=== PATIENT | male | born 1990 | race Caucasian/White ===

== ENCOUNTER 2018-02-28 14:49 | Inpatient (IN) | payer OTHER ==
--- NOTE | 2018-02-28 15:14 | EDPHY ---
H & P Time Seen by Provider: 02/28/18 14:57 HPI/ROS: HPI Suicidal thoughts. 27-year-old male on a M1 hold. Brought into the emergency department by police. This patient reports that he was diagnosed with likely bipolar syndrome and anxiety last week by his psychiatrist. He reports that he was having impulsive thoughts to day. He reports also that he has been having marital problems. He was talking to his about acting out on these impulsive thoughts which included suicide and slitting his wrists. His called police and he was brought to the emergency department for evaluation. Currently he has no complaints. He does admit to feeling suicidal but does not feel suicidal at this time. He takes gabapentin currently for anxiety. His psychiatrist is through the [facility]. ROS: Constitutional: No fever, no chills. No weakness. Eyes: No discharge. No changes in vision. ENT: No sore throat. No nasal congestion or rhinorrhea. Respiratory: No cough. No shortness of breath. Cardiac: No chest pain, no palpitations. Gastrointestinal: No abdominal pain, no vomiting, no diarrhea. Genitourinary: No hematuria. No dysuria or increased frequency with urination. Musculoskeletal: No back pain. No neck pain. No myalgias or arthralgias. Skin: No rashes. Neurological: No headache. No focal weakness or altered sensation. Past medical history: As above. 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 He is . No children. He smokes marijuana occasionally. No IV drugs or street drugs. No alcohol. Physical Exam: General Appearance: Alert, no distress. This patient is responding to questions appropriately and in full sentences. This patient appears well- hydrated and well-nourished. Eyes: Pupils equal and round no pallor or injection. No lid edema, erythema or injection. Respiratory: There are no retractions, lungs are clear to auscultation with good air movement bilaterally. Cardiovascular: Regular rate and rhythm. No murmur. Gastrointestinal: Abdomen is soft and nontender, no masses, bowel sounds normal. No focal tenderness at McBurney's point. No Montesinos sign. Neurological: Motor sensory function is grossly intact. Cranial nerves are normal. Gait is normal. Skin: Warm and dry, no rashes. Musculoskeletal: Neck is supple and nontender. Extremities are symmetrical. All joints range without pain or impingement. Psychiatric: No agitation. No depression. Database: EKG: Imaging: Procedures: Emergency department course: Triage vital signs reviewed. At 3:15 p.m., the patient is awake, alert and oriented. I do not suspect any intoxication. He he is medically clear for psychiatric evaluation. Blood work and urine tox pending. Behavioral Health notified. 5:30 p.m., the patient has been seen and evaluated by [facility]. They will admit him to [address] [place] [address] under the care of Dr. Hummel. I have filled out the appropriate transfer paperwork. The patient's remaining emergency department course under my care has been uneventful. The patient was transferred in stable condition to [address] [place] [address]. Differential Diagnosis: The differential diagnosis on this patient includes but is not limited to situational depression, major depression, suicidal ideation. This represents a partial list of diagnoses considered. These considerations are based on history , physical exam, past history, reassessment and diagnostic testing. Constitutional: Initial Vital Signs Temperature (C) 36.7 C 02/28/18 15:46 Heart Rate 85 02/28/18 15:46 Respiratory Rate 18 02/28/18 15:46 Blood Pressure 137/88 H 02/28/18 15:46 O2 Sat (%) 97 02/28/18 15:46 O2 Delivery Mode Room Air Allergies/Adverse Reactions: No Known Allergies Allergy (Unverified 02/28/18 15:45) Home Medications: Medication Instructions Recorded NK [No Known Home Meds] 02/28/18 Medical Decision Making - Data Points Laboratory Results: Laboratory Results 02/28/18 15:40 02/28/18 15:40 02/28/18 02/28/18 02/28/18 15:40 15:40 15:15 WBC 8.22 10^3/uL 10^3/uL (3.80-9.50) RBC 5.33 10^6/uL 10^6/uL (4.40-6.38) Hgb 15.3 g/dL g/dL (13.7-17.5) Hct 44.7 % % (40.0-51.0) MCV 83.9 fL fL (81.5-99.8) MCH 28.7 pg pg (27.9-34.1) MCHC 34.2 g/dL g/dL (32.4-36.7) RDW 12.6 % % (11.5-15.2) Plt Count 299 10^3/uL 10^3/uL (150-400) MPV 9.9 fL fL (8.7-11.7) Neut % (Auto) 56.7 % % (39.3-74.2) Lymph % (Auto) 31.5 % % (15.0-45.0) Traverse % (Auto) 5.7 % % (4.5-13.0) Eos % (Auto) 4.3 % % (0.6-7.6) Baso % (Auto) 0.9 % % (0.3-1.7) Nucleat RBC Rel Count 0.0 % % (0.0-0.2) Absolute Neuts (auto) 4.67 10^3/uL 10^3/uL (1.70-6.50) Absolute Lymphs (auto) 2.59 10^3/uL 10^3/uL (1.00-3.00) Absolute Monos (auto) 0.47 10^3/uL 10^3/uL (0.30-0.80) Absolute Eos (auto) 0.35 10^3/uL 10^3/uL (0.03-0.40) Absolute Basos (auto) 0.07 10^3/uL 10^3/uL (0.02-0.10) Absolute Nucleated RBC 0.00 10^3/uL 10^3/uL (0-0.01) Immature Gran % 0.9 % % (0.0-1.1) Immature Gran # 0.07 10^3/uL 10^3/uL (0.00-0.10) Sodium 141 mEq/L mEq/L (135-145) Potassium 4.2 mEq/L mEq/L (3.3-5.0) Chloride 103 mEq/L mEq/L (97-110) Carbon Dioxide 28 mEq/l mEq/l (22-31) Anion Gap 10 mEq/L mEq/L (6-14) BUN 12 mg/dL mg/dL (7-23) Creatinine 0.7 mg/dL mg/dL (0.7-1.3) Estimated GFR > 60 Glucose 85 mg/dL mg/dL (70-100) Calcium 9.8 mg/dL mg/dL (8.5-10.4) Urine Opiates Screen NEGATIVE (NEGATIVE) Urine Barbiturates NEGATIVE (NEGATIVE) Ur Phencyclidine Scrn NEGATIVE (NEGATIVE) Ur Amphetamine Screen NEGATIVE (NEGATIVE) U Benzodiazepines Scrn NEGATIVE (NEGATIVE) Urine Cocaine Screen NEGATIVE (NEGATIVE) U Marijuana (THC) Screen NEGATIVE (NEGATIVE) Ethyl Alcohol < 10 mg/dL mg/dL (0-10) Departure - Departure Disposition: [facility] IP Clinical Impression: Suicidal ideation Referrals: NONE *PRIMARY CARE P,. [Primary Care Provider] - As per Instructions
[2018-02-28 16:01] LABS: PLATELET COUNT 299 10^3/uL (150-400)
--- NOTE | 2018-02-28 18:28 | ASMTTCLDSP ---
TLC Discharge Disposition Disposition: Answers: Admit Disposition Notes: Notes: In consultation with [facility] ED physician, Luz Maria Davis MD and [facility] on-call psychiatrist, Chester Hummel MD, both concurred that pt appears to meet 27-65 criteria requiring psychiatric hospitalization as the patient appears to be an imminent risk of harm to self due to a mental illness condition. The patient was given the 3N prohibited belongings list while in the ED. Was patient given the Answers: Yes Inpatient Behavioral Health Prohibited Belongings List while in the ED? For inpatient Chester Hummel MD admission, the following psychiatrist agreed to accept patient for admission to Behavioral Health ([facility]): Type of Hold: Answers: M1/72-hour Hold Hold initiated by: Answers: Police Date Signed: 02/28/2018 06:27 PM Electronically Signed By:Nadira Christian
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
[2018-02-28] MEDS ORDERED: MAG HYDROX/AL HYDROX/SIMETH 30 ML UDCUP PO PRN (21:42)
[2018-02-28] MEDS ORDERED: ACETAMINOPHEN 325 MG TAB PO PRN (21:42)
[2018-02-28] MEDS ORDERED: MAGNESIUM HYDROXIDE 30 ML UDCUP PO PRN (21:42)
[2018-02-28] MEDS ORDERED: OLANZapine DISINTEGR 5 MG TAB PO PRN (21:42)
[2018-02-28] MEDS ORDERED: LORazepam 0.5 MG TAB PO PRN (21:42)
[2018-02-28] MEDS ORDERED: NICOTINE POLACRILEX 2 MG GUM B PRN (21:42)
[2018-02-28] MEDS ORDERED: MELATONIN 3 MG TAB PO PRN (21:44)
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
[2018-03-01] MEDS: GABAPENTIN 300 MG CAP PO SCH (08:26)
--- NOTE | 2018-03-01 11:17 | PDMN ---
Medical Necessity Medical [place] [facility] [place] PTSD, Adult, IP Care: 27 yo admit to IP BEH unit to r/o persistent depressive d/o (dysthymia) and OCD, pt with PTSD, on M1, hold risk of harm to self w suicidal ideation.
--- NOTE | 2018-03-01 11:20 | ASMTBHDC ---
Notes Note: Notes: CC was able to confirm all of client's out-patient appts: Follow up with: [facility] [place]: [address] [address] Therapy Appt: March 04 (03/04/18) at 1pm. Next Vault Attendant Appt: ThursdayMarch 08 (03/08/18) at 8:30am with KATHRYN Echols. Next Medication Appt: with Dr. Benton on ThursdayMarch 17 at 1pm Date Signed: 03/01/2018 11:19 AM Electronically Signed By:Edward Springer
--- NOTE | 2018-03-01 13:44 | BCON ---
INTERNAL MEDICINE CONSULTATION DATE OF CONSULTATION: 03/01/2018 REFERRING PHYSICIAN: Chester Hummel MD REASON FOR REFERRAL: Medical clearance for inpatient behavioral health stay. HISTORY OF PRESENT ILLNESS: This patient was brought to the emergency department on an M1 hold by police. He had been expressing suicidal thoughts to his and she called police. He also has a history of self-harm, including punching himself in the face and the legs. He was evaluated by the mental health team and evaluated for further psychiatric evaluation. He is currently without any acute complaints. PAST MEDICAL HISTORY: Mental health issues, including anxiety and possible bipolar disorder. PAST SURGICAL HISTORY: He denies any history of surgeries. MEDICATIONS: He was prescribed gabapentin prior to admission. SOCIAL HISTORY: He is . He lives with his . 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 He does not smoke cigarettes. He uses occasional alcohol and marijuana. FAMILY HISTORY: Noncontributory. REVIEW OF SYSTEMS: He denies any pain or bruising consistent with recent self- harm. He denies recent weight change, fevers, chills, cough, dyspnea, nausea, vomiting, constipation, or diarrhea. Otherwise, a 10-point review of systems is negative. PHYSICAL EXAM: VITAL SIGNS: Blood pressure is 136/81, heart rate is 73, respiratory rate is 16, oxygen saturation is 99% on room air, temperature is 36.9 degrees centigrade. His weight is 76.2 kg for a body mass index of 24.8. GENERAL: This is an overweight appearing man, unshaven, but otherwise adequately groomed, dressed in street clothes, sitting on the edge of his bed, cooperative, and in no acute distress. HEENT: Extraocular movements are intact. Pupils are equal, round, reactive to light. Mucous membranes are moist. Dentition is in good condition. He has an uncrowded airway, Mallampati class 1. NECK: Supple. HEART: There is a regular rate and rhythm with no murmurs, rubs, or gallops. LUNGS: Clear to auscultation bilaterally. ABDOMEN : Benign. EXTREMITIES: There is no cyanosis, clubbing, or edema. NEUROLOGIC : He is alert and oriented x3. Cranial nerves 2-12 are grossly intact. There is no focal weakness. Sensation is intact to light touch, and gait is within normal limits. LABORATORY STUDIES: From the emergency department, CBC was completely within normal limits. Serum chemistry revealed normal renal function and electrolytes. Toxicology screen in the serum was negative for ethyl alcohol and in the urine was negative for any substances of abuse. ASSESSMENT/RECOMMENDATIONS: 1. Mental health issues. Pending further evaluation and management per Psychiatry and the mental health team. 2. Normal exam. I see no medical contraindications to this patient's continued stay on the inpatient behavioral health unit or to any psychiatric medications or procedures. Thank you very much for including me in the care of this patient and please do not hesitate to contact me or the hospitalist service should there be need for further medical evaluation. /[id number]/MODL MTDD
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
[2018-03-02 06:41] VITALS: BP 128/86
[2018-03-02] MEDS: GABAPENTIN 300 MG CAP PO SCH (08:10)
--- NOTE | 2018-03-02 14:53 | BDS ---
REASON FOR ADMISSION: Patient on an M1 hold was brought to the emergency department by police. Patient reported having impulsive thoughts throughout the day, reported having marital problems. Patient was talking to his about acting on these impulsive thoughts, which included suicide and slitting his wrist. Patient's called police, and he was brought to the emergency department for evaluation. Patient was admitted involuntarily on an M1 hold due to being a danger to himself. Patient was admitted for safety, crisis stabilization, and medication management. ADMITTING DIAGNOSES: 1. Post-traumatic stress disorder. 2. Cannabis use disorder, moderate dependence. ADMISSION PHYSICAL EXAM: Patient was seen for an Internal Medicine consultation on 03/01/2018, for medical clearance for inpatient psychiatric hospitalization and treatment. Patient was medically cleared for inpatient psychiatric hospitalization and treatment. For further details, please refer to consultation note dated 03/01/2018. ADMISSION LABS: CBC from 02/28/2018, within normal limits. BMP from 02/28/2018 , within normal limits. Hemoglobin A1c from 03/01/2018, was 5.0 and within normal limits. Liver function from 03/01/2018, within normal limits. Lipid panel from 03/01/2018, within normal limits, except LDL cholesterol calculated was elevated at 117. Non-HDL cholesterol was elevated at 131, and HDL cholesterol was low at 38. Toxicology screen from 02/28/2018, was negative for all substances screened and negative for ethyl alcohol. MAJOR PROCEDURES OR TESTS: None. HOSPITAL COURSE: The most prominent symptoms and behaviors while the patient was here were reports of moderate anxiety and depression. Target symptoms during hospitalization were symptoms of mood instability, including reports of anxiety and depression. Treatment modalities utilized were milieu and group therapy. Options, risks and benefits of psychotropic medications for PTSD symptoms were discussed with the patient, including SSRIs and SNRIs. Sertraline 50 mg p.o. daily was recommended. The patient reported he would first like to discuss this recommendation with his therapist and outpatient psychiatrist at . The patient has improved considerably, with no signs of psychiatric symptoms and no psychiatric symptoms expressed at time of discharge. The patient reports he has improved since admission, states to be in stable condition, feels safe to discharge, and he contracts for safety. Patient's response to treatment was good. There were no adverse or unexpected results of treatment. The patient was safe throughout his stay, attended and was active in both treatment and groups, and was appropriate with staff and other patients. Patient met with the treatment team prior to discharge to assess readiness to discharge and review discharge plan. The treatment team consensus is the patient is in stable condition, has a safe discharge plan, and is ready to discharge today. CONDITION ON DISCHARGE: Patient is in stable condition and is no longer a danger to self or others, and is not gravely disabled due to mental illness. Patient is no longer in need of inpatient level of care, and can be safely and effectively treated within the community. The patients level of risk at time of discharge is low. MSE: The patient is casually dressed and with good hygiene , and looks stated age. Patient is sitting, posture is upright, and position is relaxed. Patient appears awake, alert, and responds appropriately and reasonably during interview. Patient is engaged, relates well to interviewer, and emotional facial expression is appropriate to situation and changes appropriately with topic. Patient is cooperative, makes comfortable eye contact , and movements are voluntary, deliberate, coordinated, and smooth and even with no inappropriate movements. Patient makes laryngeal sounds effortlessly and shares conversation appropriately; pace of conversation is appropriate, and stream of talking is fluent; articulation is clear and understandable; word choice is effortless and appropriate for education level; completes sentences, occasionally pausing to think; rate and volume are appropriate for interview and setting. Patient reports mood as euthymic. Patients affect is stable with full variable range, congruent with mood, and appropriate to speech and circumstances. Patient has linear and logical thinking, with no loose associations, tangential thought, thought blocking, concrete thinking, or any other signs of formal thought disorder. Patient denies suicidal and homicidal ideation, and denies hallucinations and delusions. Patient appears to be a reliable historian with sound judgement and good insight into current condition. Patient has no apparent dysfunction in recent or remote memory noted , and no evidence of gross cognitive dysfunction noted at any point during the interview. DISCHARGE DIAGNOSES: 1. Post-traumatic stress disorder. 2. Cannabis use disorder, moderate dependence. CURRENT MEDICATIONS: No medications were prescribed at time of discharge. Patient reports that he plans to discuss options for PTSD symptoms, including SSRIs or SNRIs with his outpatient therapist and psychiatrist. DISPOSITION: Patient left hospital independently and voluntarily with his and his mother after a family meeting with this nurse practitioner. FOLLOWUP: coordinator integrated marketing reports the appropriate outpatient follow-up services have been established and outpatient appointments have been scheduled. The patient received written instructions with times and dates of outpatient follow-up appointments. The following follow-up recommendations were provided to the patient at discharge: Continue psychotropic medications as prescribed and attend appointments as scheduled. Report any side effects to a psychiatric outpatient provider, a primary care provider, or other health eye care professional. Address any questions or problems concerning the psychotropic medications with a psychiatric outpatient provider, a primary care provider, or other health eye care professional. Contact [facility] or [facility], or go to the nearest emergency room, if you are ever a danger to yourself/others, or unable to care for yourself. As soon as possible, establish a routine medication management treatment with a psychiatric provider, establish routine therapy appointments, and follow-up with a primary care provider. SUBSTANCE ABUSE BRIEF INTERVENTION: Brief intervention regarding the risks of cannabis abuse is provided to patient with goal to reduce the risk of harm that could result from the continued use of cannabis, with the general aim to investigate the problem, raise awareness of problem, develop a solution with the patient, recommend a specific change or activity, and motivate the patient toward change. Assess substance abuse behavior and give supportive advice about harm reduction, recommend a reduction in hazardous/at-risk consumption patterns, and facilitate referrals for additional specialized treatment with daycare director. Intermediate goal is for the patient to quit and attend outpatient substance abuse treatment. Intervention focus on intermediate goals to allow for more immediate success in the treatment process to keep the patient motivated. Review following with patient: Cannabis use risks: Short- term use: impaired short-term memory, impaired motor coordination, altered judgement, in high doses paranoia and psychosis. Long-term use addiction, diminished life satisfaction and achievement, symptoms of chronic bronchitis, and increased risk of chronic psychosis disorders if predisposition to such disorders. In withdrawal anger, aggression irritability, anxiety and nervousness, decreased appetite or weight loss, restlessness, and sleep difficulties with strange dreams. OUTPATIENT SUBSTANCE ABUSE TREATMENT: Patient referred to outpatient provider and treatment for continued treatment related to substance abuse. LEGAL COURSE: Patient was admitted involuntarily for inpatient psychiatric hospitalization. Patient discharged today independently and voluntarily. ATTITUDE AT TIME OF DISCHARGE: The patients attitude was positive at time of discharge, and patient reports looking forward to discharging today. The patient reports he feels safe to discharge, is no longer a danger to himself or others, is in stable condition, and contracts for safety. Patient states he will continue medications as prescribed, and establish medication management treatment with an outpatient provider after discharge. Patient reports he understands the information that has been provided to him, and he understands, accepts, and agrees to psychotropic medications. Patient describes internal protective factors as the coping skills he has learned while hospitalized here, and he plans to continue to practice these coping skills after discharge. Patient reports external protective factors as family. Patient describes looking forward to spending time with his after discharge. Patient describes future plans as completed [facility] ED program. Patient reports he has completed Safety Plan and has reviewed Safety Plan with his nurse. Patient states his family and friends look forward to him discharging. LABS AND STUDIES: There were no pending labs or studies at time of discharge. ADVANCE DIRECTIVES: There were no advance directives on file, and the patient was full code during this hospitalization. The following psychotropic medication treatment informed consent and recommendations were provided to the patient at time of discharge. Patient reports he understands, accepts, and agrees to the information that has been provided. PSYCHOTROPIC MEDICATION TREATMENT INFORMED CONSENT and RECOMMENDATIONS: Review nature of condition, diagnosis, and prognosis. Review nature and purpose of psychotropic medication treatment. Review type of psychotropic medications being prescribed. Review risk and benefits of psychotropic medication treatment. Review probable length of time will need to take medications. Review risk and benefits of not undergoing psychotropic medication treatment. Review alternative treatments to psychotropic medications. Review psychotropic medications contraindications, side effects, and importance of reporting any side effects to a psychiatric provider, primary care provider, or other health eye care professional. Review importance of asking a psychiatric provider or primary care provider any questions or problems concerning the psychotropic medications. Review safety plan and the importance to contact [facility] or [facility] , or go to the nearest emergency room, if ever a danger to yourself/others, or unable to care for yourself. Recommend upon discharge to establish routine medication management treatment with a psychiatric provider, establish routine therapy appointments, and follow-up with a primary care provider. Verify patient understands, accepts, and agrees to the information that has been provided. SUICIDE ASSESSMENT FIVE-STEP EVALUATION AND TRIAGE (1) RISK FACTORS: (a) Suicidal behavior: no history of attempt (b) Current/past psychiatric disorders: PTSD, cannabis use disorder (c) Green symptoms: none expressed or exhibited at time of discharge (d) Family history: none (e) Precipitants/Stressors/Interpersonal: none (f) Change in treatment: discharge from psychiatric hospital (g) Access to firearms: none (2) PROTECTIVE FACTORS: (a) Internal: coping skills learned while hospitalized (b) External: family, friends, and future (3) SUICIDAL INQUIRY: (a) Ideation: none (b) Plan: none (c) Behaviors: none; patient was safe throughout stay with no suicidal or parasuicidal behaviors (d) Intent: none (4) RISK LEVEL: Low: modifiable risk factors, strong protective factors; no suicidal or self-injurious ideation. Intervention: treatment plan to reduce symptoms including medications and therapy, provided emergency/crisis numbers, and established follow-up plan. /[id number]
== END 2018-03-02 11:55 | disposition home or self-care (01) | DRG 882 ==
LOC: BBEH 20:14
PROVIDERS: ADMIT Psychiatry & Neurology Psychiatry; ATTEND Psychiatry & Neurology Psychiatry
DX: F43.10 Post-traumatic stress disorder, unspecified (principal); F12.20 Cannabis dependence, uncomplicated; Z23 Encounter for immunization
CPT/HCPCS: 80305; G0008; G0480